=== PATIENT | male | born 1945 | race Hispanic/Latino ===

== ENCOUNTER → 2022-06-19 | Outpatient (CLI) | payer OTHER, MEDICARE ==
[~2022-06-19] MED LIST: ASPI-1197 PO; CLOP75TA14 PO; METO25TA6 PO; PANT40TA55 PO; SIMV40TA2 PO
== END | disposition home or self-care (01) ==
LOC: SHCH 08:10
PROVIDERS: ATTEND Internal Medicine
DX: I35.1 Nonrheumatic aortic (valve) insufficiency (principal); I11.9 Hypertensive heart disease without heart failure; E78.5 Hyperlipidemia, unspecified; F17.200 Nicotine dependence, unspecified, uncomplicated; R94.31 Abnormal electrocardiogram [ECG] [EKG]
CPT/HCPCS: 93306

== ENCOUNTER → 2025-07-31 | Outpatient (CLI) | payer OTHER, MEDICARE ==
[~2025-07-31] MED LIST changes: +CLOP-31 PO; -CLOP75TA14 PO; +IOHEXOL 350 MG/ML 100ML INFUS..BTL IV ONE; +SIMV-344 PO; -SIMV40TA2 PO
--- NOTE | 2025-08-01 21:56 | CARDIOLOGY ---
RAD REPORT: [facility] CT ANGIO RADIOLOGY REPORT: CORONARY CT ANGIOGRAPHY DATE: Aug 01, 2025 QUALITY: Excellent CLINICAL HISTORY AND INDICATION: [ CAD] TECHNIQUE: After obtaining a preliminary supervisor area image, contrast imaging performed on an [id number] scanner. A dedicated, limited window, coronary imaging protocol was used, with single breath-hold, retrospective ECG gating, and automated arrhythmia rejection. 100 cc of low osmolar contrast agent: Omnipaque 350 was delivered via a 18-gauge IV catheter in the right antecubital fossa, using a power injector and followed by 60 cc of normal saline bolus as a chaser. Collimated images were reformatted at 0.5 mm intervals, and sent to an offline independent workstation for interpretation, using 3D anatomic reconstructions: Curved multiplanar reconstructions, maximum intensity projections, and multiplanar imaging. 10 mg IV metoprolol was administered prior to scanning. 0.8 mg SL nitroglycerin was given. CORONARY ARTERY DESCRIPTIONS: The coronary arteries arise in normal position. Left main coronary artery: Normal caliber vessel that bifurcates into the LAD and LCx. No stenosis. Left anterior descending coronary artery: Normal caliber vessel and gives rise to diagonal and septal branches. Drug eluting stents visualized in the mid and distal LAD segments. However, due to stent strut artifact, patency of stent is n ot able to be quantitated. Left circumflex coronary artery: Normal caliber, nondominant and gives rise to two OM branches. There is mixed calcified and noncalcified plaque in the proximal LCx with 70-80% stenosis. Right coronary artery: Large, dominant vessel giving rise to the PL and PDA branches. 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 Thoracic Aorta: Normal diameter. Aishwarya Singh MD Cardiovascular Disease [facility] AISHWARYA SINGH MD Aug 01, 2025 21:56
== END | disposition home or self-care (01) ==
LOC: RAH 09:56
PROVIDERS: ATTEND Student in an Organized Health Care Education/Training Program
DX: I25.10 Atherosclerotic heart disease of native coronary artery without angina pectoris (principal); I10 Essential (primary) hypertension
CPT/HCPCS: 75574; Q9967